=== PATIENT | male | born 1995 | race African-American/Black ===

== ENCOUNTER 2018-06-27 19:03 | Emergency (ER) | payer OTHER ==
[~2018-06-27] VITALS: Ht 180.3 cm; Wt 73.9 kg
[2018-06-27] MEDS ORDERED: LISI40TA4 PO (19:22)
--- NOTE | 2018-06-27 19:25 | NUR ---
Patient ambulated to room with stable gait. Patient denies SOB/CP/N/V/D/Fever/Chills at this time. Patient resting in bed, bed in lowest position. Siderails up x2. Patient has chief c/o ABD pain intermittently x 1 week.
[2018-06-27] MEDS ORDERED: KETOROLAC TROMETHAMINE 30 MG INJ ONE (19:44)
[2018-06-27] MEDS ORDERED: KETOROLAC TROMETHAMINE 15 MG INJ IV ONE (19:45)
[2018-06-27 19:50] LABS: BASOPHILS # (AUTO) 0.1 K/uL (0.0-8.0); BASOPHILS % (AUTO) 0.7 % (0.0-2.0); EOSINOPHILS % (AUTO) 0.4 % (0.0-7.0); HEMATOCRIT 41.3 % (36.7-47.1); HEMOGLOBIN 14.4 g/dL (12.5-16.3); LYMPHOCYTES # (AUTO) 2.6 K/uL (20.0-40.0); LYMPHOCYTES % (AUTO) 34.4 % (20.5-51.5); MEAN CORPUSCULAR HEMOGLOBIN 31.6 uug (23.8-33.4); MEAN CORPUSCULAR HGB CONC 35 g/dL (32.5-36.3); MEAN CORPUSCULAR VOLUME 90.9 fL (73.0-96.2); MONOCYTES # (AUTO) 0.7 K/uL (2.0-10.0); MONOCYTES % (AUTO) 8.8 % (0.0-11.0); NEUTROPHILS # (AUTO) 4.3 K/uL (1.8-8.9); NEUTROPHILS % (AUTO) 55.7 % (38.5-71.5); PLATELET COUNT (AUTO) 190 K/uL (152-348); RED BLOOD CELL COUNT(AUTO) 4.54 MIL/uL (4.06-5.63); WHITE BLOOD COUNT (AUTO) 7.6 K/uL (3.6-10.2)
--- NOTE | 2018-06-27 19:50 | NUR ---
Patient taken to CT via gurney with transporter. No acute distress noted. VSS
[2018-06-27 19:58] LABS: *BILIRUBIN,URIN NEGATIVE (NEGATIVE); *BLOOD, URINE NEGATIVE (NEGATIVE); *CLARITY,URINE CLEAR (CLEAR); *KETONES,URINE NEGATIVE (NEGATIVE); *PROTEIN,URINE NEGATIVE (NEGATIVE); *UROBILINOGEN,URINE 0.2 E.U./dl (NORMAL); LEUKOCYTE ESTERASE ,URINE NEGATIVE (NEGATIVE); NITRITE, URINE NEGATIVE (NEGATIVE); UGLUCOSE NEGATIVE (NEGATIVE)
[2018-06-27 19:59] LABS: CREATININE 0.9 mg/dL (0.6-1.3); POTASSIUM 3.2 mmol/L (3.5-5.1)
[2018-06-27 20:03] LABS: *COLOR,URINE LIGHT YELLOW (YELLOW)
[2018-06-27 20:04] LABS: BILIRUBIN,DIRECT 0.1 mg/dL (0.0-0.2); BILIRUBIN,TOTAL 0.2 mg/dL (0.2-1.0); TOTAL PROTEIN, SERUM 7.9 g/dL (6.4-8.2)
[2018-06-27 20:09] LABS: SQUAMOUS EPITHELIAL CELL,UR FEW /HPF (NONE SEEN); WBC,URINE NONE SEEN /HPF (0-3)
--- NOTE | 2018-06-27 20:11 | NUR ---
Patient back from CT. No acute distress noted. VSS
[2018-06-27] MEDS ORDERED: POTASSIUM CHLORIDE 10 MEQ TAB.PRT.SR PO ONE (20:30)
[2018-06-27] MEDS ORDERED: POTASSIUM CHLORIDE 10 MEQ TAB.PRT.SR ONE (20:33)
--- NOTE | 2018-06-27 20:36 | NUR ---
Patient discharged to home in stable conditon. Written and verbal after care instructions given. Patient verbalizes understanding of instructions. Peripheral IV removed prior to d/c. Ambulated from ER with stable gait. All belongings with patient.
[2018-06-27 20:41] VITALS: BP 141/85
== END 2018-06-27 20:41 | disposition home or self-care (01) ==
LOC: ER 19:03
DX: R10.84 Generalized abdominal pain (principal); E87.6 Hypokalemia; I10 Essential (primary) hypertension
CPT/HCPCS: 36415; 74176; 80048; 80076; 81001; 83690; 85025; 96374; 99285; J1885; A4663